=== PATIENT | female | born 1980 | race Two or more races ===

== ENCOUNTER 2018-07-15 10:38 | Emergency (ER) | payer OTHER ==
[~2018-07-15] VITALS: Ht 154.9 cm; Wt 63.5 kg
[~2018-07-15 10:38] MED LIST: LEVSIN/SL0.125 MG SL; PEPCID40 MG PO; ZOFRAN8 MG PO; [UNRECOGNIZED DRUG - OTHER]
== END 2018-07-15 16:07 | disposition home or self-care (01) ==
LOC: ER 10:38
DX: R51 Headache (principal); M54.2 Cervicalgia; G44.209 Tension-type headache, unspecified, not intractable

== ENCOUNTER 2018-07-25 08:19 | Emergency (ER) | payer OTHER ==
[~2018-07-25] VITALS: Ht 154.9 cm; Wt 63.5 kg
== END 2018-07-25 09:20 | disposition home or self-care (01) ==
LOC: ER 08:19
DX: M62.838 Other muscle spasm (principal)

== ENCOUNTER 2019-05-14 09:18 | Emergency (ER) | payer OTHER ==
[~2019-05-14] VITALS: Ht 154.9 cm; Wt 64.4 kg
== END 2019-05-14 12:44 | disposition home or self-care (01) ==
LOC: ER 09:18
DX: B33.8 Other specified viral diseases (principal); B96.0 Mycoplasma pneumoniae [M. pneumoniae] as the cause of diseases classified elsewhere

== ENCOUNTER 2020-09-26 08:26 | Emergency (ER) | payer OTHER ==
[~2020-09-26] VITALS: Ht 154.9 cm; Wt 63.5 kg
== END 2020-09-26 13:49 | disposition home or self-care (01) ==
LOC: ER 08:26
DX: B34.9 Viral infection, unspecified (principal); J32.8 Other chronic sinusitis; Z11.52 Encounter for screening for COVID-19

== ENCOUNTER 2020-11-24 00:13 | Emergency (ER) | payer OTHER ==
[~2020-11-24] VITALS: Ht 154.9 cm; Wt 64.4 kg
== END 2020-11-24 13:01 | disposition home or self-care (01) ==
LOC: ER 00:13
DX: K59.00 Constipation, unspecified (principal); R11.2 Nausea with vomiting, unspecified

== ENCOUNTER 2024-08-28 09:06 | Emergency (ER) | payer OTHER ==
[~2024-08-28] VITALS: Ht 154.9 cm; Wt 62.1 kg
[2024-08-28] MEDS ORDERED: TRAMADOL HCL 50 MG TABLET PO STA (10:15)
[2024-08-28 10:33] LABS: BASO % 0.6 % (0.1-1.2); EOS # 0.02 (0.04-0.54); EOS % 0.3 % (0.7-7.0); HEMATOCRIT 40.5 % (34.1-44.9); HEMOGLOBIN 13.7 g/dL (11.2-15.7); LYMPH # 2.51 (1.18-3.74); LYMPH % 37.6 % (19.3-53.1); MEAN CORPUSCULAR HEMOGLOBIN 29.7 pg (25.6-32.2); MONO # 0.46 (0.24-0.82); MONO % 6.9 % (4.7-12.5); NEUT # 3.64 (1.56-6.13); NEUT % 54.5 % (34.0-71.1); PLATELET COUNT 199 K/uL (163-369); RED BLOOD COUNT 4.61 M/uL (3.93-5.22); RED CELL DISTRIBUTION WIDTH 13.3 % (11.6-14.4)
[2024-08-28 10:44] LABS: URINE APPEARANCE Clear; URINE BILIRRUBIN Negative (NEGATIVE); URINE BLOOD Negative; URINE COLOR Yellow; URINE GLUCOSE Negative (NEGATIVE); URINE KETONE 15 (NEGATIVE); URINE LEUKOCYTE Negative; URINE NITRATE Negative; URINE PROTEIN Negative (NEGATIVE)
[2024-08-28 10:45] LABS: URINE EPITHELIAL CELLS 8.5 uL (0.0-38.8); URINE RBC 6.9 uL (0.0-20.8); URINE WBC 3.1 uL (0.0-23.2)
[2024-08-28 10:46] LABS: URINE CAST 0.29 uL (0.0-1.40)
[2024-08-28 10:57] LABS: ALBUMIN 3.9 gm/dL (3.4-5.0); BILIRUBIN TOTAL 0.5 mg/dL (0.3-1.2); CALCIUM 9.3 mg/dL (8.5-10.1); CREATININE SERUM 0.66 mg/dL (0.55-1.02); GFR 98.21; GLOBULINA 3.6 G/DL (2.4-3.5); POTASSIUM 3.84 mEq/L (3.5-5.1); TOTAL PROTEIN 7.5 gm/dL (6.4-8.2)
[2024-08-28] MEDS ORDERED: KETOROLAC TROMETHAMINE 30 MG VIAL IM STA (11:05)
[2024-08-28] MEDS ORDERED: KETOROLAC TROMETHAMINE 30 MG VIAL ONE (11:13)
== END 2024-08-28 11:27 | disposition home or self-care (01) ==
LOC: ER 09:06
PROVIDERS: General Practice
DX: M54.89 Other dorsalgia (principal); M51.379 Other intervertebral disc degeneration, lumbosacral region without mention of lumbar back pain or lower extremity pain; Z88.8 Allergy status to other drugs, medicaments and biological substances; Z91.013 Allergy to seafood